=== PATIENT | male | born 1960 | race Caucasian/White ===

== ENCOUNTER → 2018-10-04 | Outpatient (CLI) | payer OTHER ==
[~2018-10-04] MED LIST: CETI10TA22 PO; GABA300C18 PO; MELO7.5T29 PO; TRIA15CR TP; ZOLP10TA PO
[2018-10-04 12:48] LABS: CALCIUM 9.4 mg/dL (8.5-10.1); GFR 77.3; POTASSIUM 4.2 mmol/L (3.5-5.1)
[2018-10-04 12:57] LABS: BASO % 1 % (0-3); EOS # 0.2 x10^3/uL (0.0-0.7); EOS % 4 % (0-3); HEMATOCRIT 48.9 % (39.0-53.0); HEMOGLOBIN 17.3 g/dL (13.0-17.5); LYMPH # 1.9 x10^3/uL (1.0-4.8); LYMPH % 31 % (24-48); MEAN CORPUSCULAR HEMOGLOBIN 34 pg (25-35); MEAN CORPUSCULAR HGB CONC 35 g/dL (31-37); MEAN CORPUSCULAR VOLUME 95 fL (79-100); MONO # 0.3 x10^3/uL (0.0-1.1); MONO % 5 % (0-9); NEUT # 3.6 x10^3/uL (1.8-7.7); NEUT % 60 % (31-73); PLATELET COUNT 229 x10^3/uL (140-400); RED BLOOD COUNT 5.13 x10^6/uL (4.30-5.70); RED CELL DISTRIBUTION WIDTH 13.6 % (11.5-14.5); WHITE BLOOD COUNT 6.1 x10^3/uL (4.0-11.0)
== END | disposition home or self-care (01) ==
LOC: SURGPAT 11:56
PROVIDERS: ATTEND Surgery
DX: Z01.818 Encounter for other preprocedural examination (principal); K62.89 Other specified diseases of anus and rectum
CPT/HCPCS: 36415; 80048; 82040; 85025

== ENCOUNTER 2018-10-11 09:36 | Day surgery (SDC) | payer OTHER ==
[~2018-10-11] VITALS: Ht 188 cm; Wt 77.0 kg
[~2018-10-11 09:36] MED LIST changes: +HYDROmorphone 2 MG/ML VIAL IV PRN; +IV RINGERS,LACTATED 1000ML 1,000 ML IV SCH; +LIDOCAINE 1% PF 2 ML VIAL. ID PRN; +MORPHINE SULFATE 2 MG/ML VIAL. IV PRN; +ONDANSETRON PF 4 MG/2 ML VIAL. IV PRN; +PROCHLORPERAZINE 10 MG/2 ML VIAL. IV PRN; +fentaNYL PF VIAL 100 MCG/2 ML VIAL IV PRN
[2018-10-11] MEDS ORDERED: fentaNYL PF VIAL 100 MCG/2 ML VIAL ONE (11:28)
[2018-10-11] MEDS ORDERED: ROCURONIUM 50 MG/5 ML VIAL. ONE (11:28)
[2018-10-11] MEDS ORDERED: MIDAZOLAM HCL/PF 2 MG/2 ML VIAL. ONE (11:55)
[2018-10-11] MEDS ORDERED: GELATIN SPONGE SIZE 100. ONE (11:59)
[2018-10-11] MEDS ORDERED: LIDOCAINE 2% JELLY 6ML IN APPLICATOR. ONE (11:59)
[2018-10-11] MEDS ORDERED: BUPIVACAINE-EPI 0.5%-1:200000 MPF 30 ML VIAL. INJ ONE (12:26)
[2018-10-11] MEDS ORDERED: GELATIN SPONGE SIZE 12-7MM SPONGE. TP ONE (12:26)
[2018-10-11] MEDS ORDERED: PROPOFOL 20 ML IV ONE (12:40)
[2018-10-11] MEDS ORDERED: LIDOCAINE 2% PF 5 ML VIAL. ONE (12:40)
[2018-10-11] MEDS ORDERED: DEXAMETHASONE SOD PHOS 4 MG/ML VIAL ONE (12:40)
[2018-10-11] MEDS ORDERED: ONDANSETRON PF 4 MG/2 ML VIAL. ONE (12:40)
[2018-10-11] MEDS ORDERED: GLYCOPYRROLATE 1 MG/5 ML VIAL. ONE (12:41)
[2018-10-11] MEDS ORDERED: NEOSTIGMINE METHYLSULFATE 5 MG/5 ML SYRINGE. ONE (12:41)
--- NOTE | 2018-10-11 12:54 | DISCH ---
DISCHARGE INSTRUCTIONS Condition on Discharge Condition on Discharge: Stable Activity After Discharge Activity Instructions for Disc: Activity as tolerated, Avoid exertion Lifting Instructions after Dis: No heavy lifting Driving Instructions after Dis: Do not drive today Diet after Discharge Diet after Discharge: Regular Wound Incision Care Other wound/incision instructi: torres Bonilla Follow-Up Follow up with: Josef two weeks ILYA CALLOWAY MD Oct 11, 2018 12:54
[2018-10-11] MEDS ORDERED: SEVOFLURANE 31 TO 60 MINUTES. IH ONE (12:57)
--- NOTE | 2018-10-11 13:00 | PDOC ---
BRIEF OPERATIVE NOTE Date: Oct 11, 2018 Pre-Op Diagnosis perianal skin tags, possible fissure Post-Op Diagnosis perianal skin tags Procedure Performed EUA rigid procto excision perianal skin tags Surgeon Josef Anesthesia Type: General Blood Loss 10cc IV Fluid 1000cc Specimens Obtained perianal skin tags Findings no evidence of internal hemorrhoids or anal fissure, skin tags at 11:00 and 6:00 Complications none Operative Note Wk # [id number] ILYA CALLOWAY MD Oct 11, 2018 12:59
--- NOTE | 2018-10-11 13:11 | OP ---
DATE OF SURGERY: 10/11/2018 PREOPERATIVE DIAGNOSIS: Perianal skin tags, possible fissure. POSTOPERATIVE DIAGNOSIS: Perianal skin tags. PROCEDURES: 1. Exam under anesthesia. 2. Rigid proctoscopy. 3. Excision perianal skin tag. SURGEON: Ilya Calloway MD ANESTHESIA: General endotracheal. ESTIMATED BLOOD LOSS: 10 mL. INTRAVENOUS FLUIDS: A liter. DESCRIPTION OF PROCEDURE: The patient brought to the operating suite, given a general endotracheal anesthetic and placed in prone jackknife position and the buttocks were taped apart. Digital rectal exam was performed after a careful inspection of the perianal skin, which did not show evidence of a fissure. Rigid scope was inserted in the anal canal and advanced approximately 12 cm from the anal verge where some tortuosity prevented further advancement. The scope was slowly removed, no abnormalities seen, prep was good. Marcaine 0.5% with epinephrine was infiltrated circumanally and the area prepped and draped in usual sterile fashion. Careful inspection of the anal canal failed to reveal evidence of internal hemorrhoids. A large and smaller perianal skin tag at 11 o'clock and 6 o'clock respectively were excised. Good hemostasis was present. A Gelfoam pack with 2% lidocaine jelly was placed in the anal canal. Sterile dressing applied. The patient taken out of the prone position, awakened from his anesthetic and taken to the recovery room in satisfactory condition. ILYA CALLOWAY MD DR: WESLY/edwin JOB#: [id number] / [id number]
[2018-10-11] MEDS: fentaNYL PF VIAL 100 MCG/2 ML VIAL IV PRN ×3 (13:25→13:45)
[2018-10-11] MEDS ORDERED: HYDROcodone/APAP 5/325MG 1 TAB TABLET PO ONE (13:30)
[2018-10-11 14:10] VITALS: BP 115/71
--- NOTE | 2018-10-13 18:06 | PATHOLOGY ---
[facility] Accession Number: [id number] . 01 Material submitted: . perianal area - PERIANAL SKIN TAGS . 01 Clinical history: . Anal pain . 02 Diagnosis: Segments of skin (2), perianal excision: - Cutaneous tags. (JPM:gabbie; 10/13/2018) QMS/10/13/2018 . 02 Comment: There is no evidence of malignancy. . 02 Electronically signed: . Tomer Alvarez MD, Pathologist NPI- [id number] . 01 Gross description: . The specimen is received in formalin, labeled "Jon Ramirez, perianal skin tags". Received are two segments of edwards-rowan epithelial covered tissue measuring 1.2 x 0.4 x 0.3 and 1.5 x 1.0 x 1.0 cm in greatest dimensions. The apparent surgical margins are inked. The smaller segment is submitted intact in cassette A1. The larger segment is bisected and entirely submitted in cassette A2. (CAA; 10/12/2018) QAC/QAC . 02 Pathologist provided ICD-10: L91.8 . 02 CPT . 611305 Specimen Comment: A courtesy copy of this report has been sent to Specimen Comment: [phone], . Specimen Comment: Report sent to and Performed at: 01 [facility] [address], [place] [id number] MD Jerald Boyle MD Phone: [phone] Performed at: 02 [facility] [address] [place], [place] [id number] MD Tomer Alvarez MD Phone: [phone]
== END 2018-10-11 14:33 | disposition home or self-care (01) ==
LOC: SURG 09:36 → EDUNIT# 11:15 → SURG 14:33
PROVIDERS: ATTEND Surgery
DX: L91.8 Other hypertrophic disorders of the skin (principal); F41.9 Anxiety disorder, unspecified; F32.9 Major depressive disorder, single episode, unspecified; Z87.01 Personal history of pneumonia (recurrent); Z98.890 Other specified postprocedural states
CPT/HCPCS: 46230; A7015; J0690; J1100; J2001; J2250; J2405; J2704; J2710; J3010; J3490; J7120; A4461

== ENCOUNTER → 2018-10-24 | Outpatient (CLI) | payer OTHER ==
[2018-10-11 14:10] VITALS: BP 115/71
[~2018-10-24] MED LIST changes: +DULO60CA6 PO; +GABA600T7 PO; -HYDROmorphone 2 MG/ML VIAL IV PRN; -IV RINGERS,LACTATED 1000ML 1,000 ML IV SCH; -LIDOCAINE 1% PF 2 ML VIAL. ID PRN; -MORPHINE SULFATE 2 MG/ML VIAL. IV PRN; -ONDANSETRON PF 4 MG/2 ML VIAL. IV PRN; -PROCHLORPERAZINE 10 MG/2 ML VIAL. IV PRN; +SUMA100T4 PO; +ZOLP10TA4 PO; -fentaNYL PF VIAL 100 MCG/2 ML VIAL IV PRN
--- NOTE | 2018-10-25 00:18 | PAIN ---
DATE OF SERVICE: 10/24/2018 INITIAL CONSULTATION FOR PAIN CLINIC CHIEF COMPLAINT: Low back and right lower extremity pain. HISTORY OF PRESENT ILLNESS: This is a 58-year-old male, who presents with history of pain in the low back and right lower extremity for about 4 years. The patient reports he was bending over, working on his truck and his back "went out." The patient reports that since that time, it has been painful. He has been doing some physical therapy exercises, which he had initially, but now doing the exercises on his own since 2014. The patient reports he has had no chiropractic treatment or other treatments, but is doing the exercises, still on his own. The patient reports that the pain is constant, it is in the low back, radiating to the right lower extremity, posterior gluteus, posterolateral thigh, lateral anterior thigh, medial thigh, medial lower leg to the middle leg to the ankle. The patient reports it is a constant pain, that is tingling at times, worse with walking, standing, changing positions, better with sitting or lying down, it does not awaken her from sleep at night, it does not affect her bowel or bladder control, but does affect his ability to walk; however, he is not using any assistive devices to ambulate. The patient did have plain films of the lumbar spine showing lumbar vertebral height is maintained, mil scattered marginal spurs, mild disk space narrowing at L5-S1 with mild degenerative changes in the lungs, scattered facet joints. No fracture or subluxation evident with multilevel degenerative change. The patient reports no loss of motor function, but significant fatigability of the right lower extremity with ambulation with especially standing or standing still. The patient reports a disability rating from 0-10, 10 being the worst and 0 with family home responsibilities, 1 with recreation activities, 1 with sexual behavior and 3 with self-care activities. PAST MEDICAL HISTORY: Significant for arthritis, cigarette smoking. PREVIOUS SURGERY: Includes appendectomy, otherwise the patient has been in fairly good health. MEDICATIONS: Current medications include zolpidem, sumatriptan. Cetirizine, gabapentin, tizanidine. ALLERGIES: THE PATIENT IS ALLERGIC TO ONLY SEASONAL ALLERGIES AND ENVIRONMENTAL ALLERGIES. No medical allergies. FAMILY HISTORY: Significant for heart disease, diabetes and cancers. SOCIAL HISTORY: The patient smokes about a pack a day since he was 18 years of age. Does not drink alcohol, does not use any illegal, illicit or recreational drugs. He is single. Lives locally in [place], [place]. REVIEW OF SYSTEMS: The patient's review of systems is positive for those items mentioned in history of present illness. All systems reviewed and otherwise negative. It is complete, full and well documented on the patient's chart. PHYSICAL EXAMINATION: VITAL SIGNS: The patient's blood pressure is 126/81, pulse 61, respirations 18, temperature 98.0 degrees Fahrenheit, height is 6 feet 2 inches, weight is 166 pounds. GENERAL: The patient is awake, alert, oriented, appropriate, very pleasant demeanor. HEENT: Head shows normocephalic, atraumatic. Extraocular movements are intact and symmetrical. Oral cavity: Mucous membranes are moist and pink. Dentition is intact. NECK: Shows anterior throat supple without palpable lymphadenopathy noted. Swallow reflexes are symmetrical. CHEST: Shows normal on inspection. Breath sounds are clear to auscultation bilaterally. HEART: Shows S1, S2 clear. No murmurs auscultated. ABDOMEN: Soft, nontender, nondistended. No palpable organomegaly is noted. No rebound or guarding demonstrated. BACK: Shows spine grossly in the midline, normal-appearing cervical lordotic curvature, thoracic kyphotic curvature and lumbar lordotic curvature. Lumbar paraspinous muscle shows symmetrical on inspection, with palpation shows some moderate tenderness diffusely throughout the upper, middle and lower distribution of the paraspinous muscles bilaterally. The patient shows good rotational motion with no tenderness over the spinous processes, sacrum or sacroiliac regions. The patient shows good rotation as well as extension and flexion without significant increase in pain. EXTREMITIES: Lower extremities show deep tendon reflexes 1+ in the patellar and tendo-calcaneus tendons. Motor exam is strong with approximately 4 on a scale of 5 right dorsiflexion, extension and 5/5 on the left. Quadriceps and hamstring flexion likewise 4/5 on the right and 5/5 on the left, but intact. Peripheral pulses are 1+ posterior tibia. No peripheral edema is noted. Straight leg raise noted to be positive on the right side about 35 degrees, decreased with knee flexion, left side is negative. Gaenslen's and Bruce's maneuvers are negative bilaterally. The patient is able to stand, stand on her toes without significant difficulty or loss of balance, walking with a slight shuffling gait, does appear to favor the right lower extremity slightly with a small limp, but without any assistive devices such as canes or walkers to ambulate. SKIN: Shows warm and dry, good turgor. No edema. No sores, rashes or bruising throughout. IMPRESSION: 1. This is a 58-year-old male with an approximate 4-year history of increasing pain, low back into the right lower extremity, in a radicular fashion following L4-L5 dermatomal distribution. 2. Plain films of the lumbar spine as noted. 3. Arthritis. 4. Cigarette smoking. PLAN: Options were discussed with the patient including conservative medical management managements, continued physical therapies, interventional techniques. He would like to pursue interventional techniques. We discussed a lumbar epidural steroid injection using descriptions as well as anatomical models to describe the procedure. The patient will wait for preauthorization with his insurance provider. Once this is obtained, we will have him return for a lumbar epidural steroid injection. In the meantime, we will try Medrol Dosepak. The patient was given instruction as well as side effects to be aware of with the medication and we will have him continue with exercises at home as he has been doing as well as walking as tolerated and have the patient to return in approximately 1 week. We will plan on 2 weeks after preauthorization for lumbar epidural steroid injection at that time, translaminar approach at the L4-L5 level. ALVAREZ GRANT MD DR: HERNANDO/edwin JOB#: [id number] / [id number]
== END | disposition home or self-care (01) ==
LOC: PNCL 09:59 → EDUNIT# 10:00
PROVIDERS: ATTEND Anesthesiology
DX: M54.5 Low back pain (principal); M79.604 Pain in right leg; M19.90 Unspecified osteoarthritis, unspecified site; F17.210 Nicotine dependence, cigarettes, uncomplicated
CPT/HCPCS: G0463

== ENCOUNTER → 2018-11-07 | Outpatient (CLI) | payer OTHER ==
[2018-10-11 14:10] VITALS: BP 115/71
[~2018-11-07] MED LIST changes: +IOHEXOL 180 MG/ML 10 ML VIAL. ONE; +methylPREDNISolone ACETATE 40 MG/ML VIAL. ONE; +methylPREDNISolone ACETATE 80 MG/ML VIAL. ONE
--- NOTE | 2018-11-07 19:41 | PAIN ---
DATE OF SERVICE: 11/07/2018 PROGRESS NOTE FOR PAIN CLINIC DIAGNOSES: Lumbar radiculopathy with lumbar degenerative disk disease. HISTORY OF PRESENT ILLNESS: The patient is a 58-year-old male, who returns for followup status post initial evaluation and preauthorization for lumbar epidural steroid injection. The patient has obtained this now and would like to proceed. The patient returns. He has still significant pain in the low back and into the right lower extremity as it was previously. The patient reports no new motor or sensory deficits. No new bowel or bladder incontinence. He rates his pain as 9 on a scale of 10 at its worst over the past week, 4 on average and a 2 at its least and is 4 today. The patient reports it is still aching and dull, shooting and tingling, some on the right leg. The patient reports no new motor or sensory deficits. No new bowel or bladder incontinence or other complaints. PHYSICAL EXAMINATION: VITAL SIGNS: The patient's blood pressure 120/82, pulse 65, respirations 18, temperature 98.1 degrees Fahrenheit. Height is 6 feet 2 inches and weight is 164 pounds. GENERAL: The patient is awake, alert, oriented, and appropriate, very pleasant demeanor. HEENT: Shows normocephalic, atraumatic. Extraocular movements are intact and symmetrical. Oral cavity: Mucous membranes moist and pink. Dentition is intact. NECK: Shows anterior throat supple without palpable lymphadenopathy noted. Swallow reflex symmetrical. CHEST: Shows normal on inspection. Breath sounds clear to auscultation bilaterally. HEART: Shows S1, S2 clear. No murmurs auscultated. ABDOMEN: Soft, nontender, and nondistended. No palpable organomegaly is noted. There is no rebound or guarding demonstrated. BACK: Shows spine grossly in the midline. Normal appearing thoracic kyphosis and minor flattening of lumbar lordotic curvature. Lumbar paraspinous muscle shows symmetrical on inspection and with palpation shows some mild tenderness in the inferior aspect of the lumbar paraspinous musculature, but only diffusely without radiation. The patient has good rotational motion of lumbar spine, both laterally as well as extension and flexion without difficulty. EXTREMITIES: Lower extremities show deep tendon reflexes 1+ in the patellar and tendo calcaneus tendons are equal. Motor exam is approximately 4 on a scale of 5 on the right with dorsiflexion and extension, 5/5 on the left. Peripheral pulses are 1+ in the posterior tibia. No peripheral edema is noted. Options were discussed with the patient. The patient's old chart was reviewed as his current medication regimen updated. Current review of systems updated today as well. We will proceed with a lumbar epidural steroid injection today with fluoroscopic guidance. Risks were again discussed including, but not limited to bleeding, infection, possibility of epidural hematoma and subsequent neurological compromise, dural puncture, headaches, spinal cord and/or nerve damage, side effects of steroid medication, and poor results regarding pain control. The patient understands and wished to proceed. The patient will return to clinic in approximately 2 weeks for followup. He was counseled on return appointment, activity level, and side effects to be aware of. DIAGNOSES: Lumbar radiculopathy with lumbar degenerative disk disease. PROCEDURE: Lumbar epidural steroid injection, translaminar approach L4-5 level using C-arm fluoroscopic guidance under sterile prep and drape using local anesthetic. MEDICATION INJECTED: A total of 120 mg of Depo-Medrol plus 10 mL of preservative-free normal saline and 2 mL of contrast. CONDITION AT DISCHARGE: Stable. The patient tolerated the procedure well and had no complications. ALVAREZ GRANT MD DR: HERNANDO/edwin JOB#: [id number] / [id number]
== END ==
LOC: PNCL 11:21
PROVIDERS: ATTEND Anesthesiology
DX: M51.16 Intervertebral disc disorders with radiculopathy, lumbar region (principal)
CPT/HCPCS: 62323; J1030; J1040; Q9965

== ENCOUNTER → 2019-01-10 | Outpatient (CLI) | payer OTHER ==
[~2019-01-10] MED LIST changes: -IOHEXOL 180 MG/ML 10 ML VIAL. ONE; -methylPREDNISolone ACETATE 40 MG/ML VIAL. ONE; -methylPREDNISolone ACETATE 80 MG/ML VIAL. ONE
--- NOTE | 2019-01-10 12:33 | PAIN ---
DATE OF SERVICE: 01/10/2019 PROGRESS NOTE FOR PAIN CLINIC DIAGNOSES: Lumbar radiculopathy with lumbar degenerative disk disease. HISTORY OF PRESENT ILLNESS: The patient is a 58-year-old male who returns for followup status post lumbar epidural steroid injection x 1 on 11/07/2018. The patient did very well with an 80% improvement for the first few weeks. The patient reports the pain returned after that time in the low back and in the right lower extremity, posterior gluteus, lateral thigh, anterior thigh, medial thigh, medial lower leg and medial knee on the right side more than the left. The patient reports some on the left side, but very infrequent. The patient reports it is worse with walking, standing, changing positions, better with sitting or lying down, awakens him from sleep about every 7 hours or so and it only happened recently within the last month or so, the pain has been returning significantly. The patient rates it 9 on a scale of 10 at its worst in the past week, 7.5 on average and 6 at its least and is a 7 today. The patient reports it is aching, dull, shooting, cramping, burning, tingling, constant, severe, becoming unbearable with walking and changing positions, better with sitting or lying down, but again waking him up from sleep fairly often here within the last month or so. PHYSICAL EXAMINATION: VITAL SIGNS: The patient's blood pressure is 125/91, pulse 98, respirations are 16, temperature 97.9 degrees Fahrenheit, height 6 feet 2 inches and weight is 164 pounds. GENERAL: The patient is awake, alert, oriented, appropriate, very pleasant demeanor. HEENT: Shows normocephalic, atraumatic. Extraocular movements are intact and symmetrical. Oral cavity: Mucous membranes moist and pink. Dentition is intact. NECK: Shows anterior throat supple without palpable lymphadenopathy noted. Swallow reflex symmetrical. CHEST: Shows normal on inspection. Breath sounds are clear bilaterally. HEART: Shows S1, S2 clear. No murmurs auscultated. ABDOMEN: Soft, nontender, nondistended. No palpable organomegaly is noted. No rebound or guarding demonstrated. BACK: Shows spine grossly in the midline. Normal appearing thoracic kyphosis and minor flattening of lumbar lordotic curvature. Lumbar paraspinous muscle shows symmetrical on inspection, on palpation shows some moderate tenderness diffusely bilaterally but only diffusely without radiation. The patient has good rotational motion of lumbar spine without significant tenderness including extension and forward flexion without pain reported in any of these rotations. EXTREMITIES: Lower extremities show deep tendon reflexes 1+ in the patellar and tendo calcaneus tendons. Motor exam is approximately 4 on a scale of 5 on the right and 5/5 with left dorsiflexion, extension, quadriceps and hamstring flexion, but is intact bilaterally. Peripheral pulses are 1+ posterior tibia. No peripheral edema is noted. Straight leg raise noted to be mildly positive on the right at about 40 degrees, decreased with knee flexion, left side is negative. Peripheral pulses are 1+, no peripheral edema is noted. Options were discussed with the patient. The patient's old chart was reviewed as his current medication regimen updated. Current review of systems updated today as well. We will preauthorize the patient for a second lumbar epidural steroid injection as he still has significant radicular pattern pain in the right lower extremity in L4-L5 dermatomal distribution. The patient will continue with walking, stretching and strengthening exercises as he has been doing as tolerated. We will have preauthorization for the injection, the patient return at that time, also order MRI scan as he is not able to perform, he does have some significant degenerative findings on plain films from July of this year especially at the L5-S1 level. After preauthorization lumbar epidural steroid injection at L4-L5 level, translaminar approach. ALVAREZ GRANT MD DR: HERNANDO/edwin JOB#: [id number] / [id number]
== END | disposition home or self-care (01) ==
LOC: PNCL 09:16
PROVIDERS: ATTEND Anesthesiology
DX: M51.16 Intervertebral disc disorders with radiculopathy, lumbar region (principal)
CPT/HCPCS: G0463

== ENCOUNTER → 2019-01-15 | Outpatient (CLI) | payer OTHER ==
--- NOTE | 2019-01-15 10:28 | RAD ---
LUMBAR SPINE WO CONTRAST Date: 01/15/2019 9:00 AM Indication: Radiculopathy Comparison: CT abdomen pelvis 10/29/2018. Lumbar spine radiographs 08/04/2018. Technique: Multi-planar multi-weighted magnetic resonance imaging of the lumbar spine was performed without intravenous contrast using the standard lumbar spine protocol. FINDINGS: The lumbar spine is normally aligned. No acute fracture. Mild multilevel degenerative disc desiccation and disc height loss. Scattered vertebral body hemangiomas. The conus terminates at a normal level. No abnormal signal is seen within the visualized distal spinal cord. No clumping of intrathecal nerve roots. No soft tissue abnormality in the visualized abdomen or pelvis. T12-L1: No disc bulge. No facet arthropathy. No significant spinal stenosis or neural foraminal narrowing. L1-L2: Mild disc bulge. No facet arthropathy. No significant spinal stenosis or neural foraminal narrowing. L2-L3: Mild disc bulge. Mild facet arthropathy. No significant spinal stenosis or neural foraminal narrowing. L3-L4: Disc bulge with annular tear. Mild to moderate facet arthropathy. Mild spinal stenosis and lateral recess narrowing. Mild bilateral neural foraminal narrowing. L4-L5: Disc bulge with annular tear. Mild facet arthropathy. Ligamentum flavum thickening. Mild spinal stenosis and lateral recess narrowing. Mild to moderate left and mild right neural foraminal narrowing. L5-S1: Disc bulge with annular tear and right greater than left far lateral protrusions. Mild facet arthropathy. No significant spinal stenosis. Mild bilateral neural foraminal narrowing. IMPRESSION: Mild to moderate lumbar spondylosis, detailed level by level above. No high-grade spinal canal stenosis. Electronically signed by: Dominick Reyes MD (01/15/2019 10:25 AM) [facility]
== END ==
LOC: MRI 08:47
PROVIDERS: ATTEND Anesthesiology
DX: M51.16 Intervertebral disc disorders with radiculopathy, lumbar region (principal); M48.061 Spinal stenosis, lumbar region without neurogenic claudication; M47.816 Spondylosis without myelopathy or radiculopathy, lumbar region
CPT/HCPCS: 72148

== ENCOUNTER → 2019-01-18 | Outpatient (CLI) | payer OTHER ==
[~2019-01-18] MED LIST changes: +IOHEXOL 180 MG/ML 10 ML VIAL. ONE; +methylPREDNISolone ACETATE 40 MG/ML VIAL. ONE; +methylPREDNISolone ACETATE 80 MG/ML VIAL. ONE
--- NOTE | 2019-01-18 22:35 | PAIN ---
DATE OF SERVICE: 01/18/2019 PROGRESS NOTE FOR PAIN CLINIC DIAGNOSES: Lumbar radiculopathy with lumbar degenerative disk disease. HISTORY OF PRESENT ILLNESS: The patient is a 58-year-old male who returns for followup, status post lumbar epidural steroid injection x 1 on 11/07/2018. The patient did well, about 70% improvement for the first month or so. The patient reports the pain has returned now in the low back, right greater than left lower extremity, posterior gluteus, posterolateral thigh, lateral anterior thigh and medial thigh on the right side. The patient reports it is worse with walking, standing, changing positions, better with sitting or lying down, does not awaken him from sleep at night. The patient rated this as an 8 on a scale of 10 at its worst over the past week, 7 on average, 6 at its least and is a 6 today. The patient reports no new motor or sensory deficits. Initially, he was increased with distance walking, doing household activities as well as traveling with greater ease and comfort, now the pain is returning in the low back and right leg. Describes as aching, burning, sharp and shooting at times. PHYSICAL EXAMINATION: VITAL SIGNS: The patient's blood pressure 115/72, pulse 66, respirations 18, temperature 97.8 degrees Fahrenheit, height 6 feet 2 inches, weight is 166 pounds. GENERAL: The patient is awake, alert, oriented, appropriate, very pleasant demeanor. HEENT: Shows normocephalic, atraumatic. Extraocular movements are intact and symmetrical. Oral cavity: Mucous membranes moist and pink. Dentition is intact. NECK: Shows anterior throat supple without palpable lymphadenopathy noted. Swallow reflex symmetrical. CHEST: Shows normal on inspection. Breath sounds clear to auscultation bilaterally. HEART: Shows S1, S2 clear. No murmurs auscultated. ABDOMEN: Soft, nontender, nondistended. No palpable organomegaly is noted. BACK: Shows spine grossly in the midline. Normal appearing thoracic kyphosis, minor flattening of lumbar lordotic curvature. Lumbar paraspinous muscle shows symmetrical on inspection, on palpation shows some moderate tenderness diffusely bilaterally going diffusely without significant radiation. The patient has good rotational motion of lumbar spine, both laterally as well as extension and flexion without significant difficulty or pain reported. EXTREMITIES: The patient's lower extremities show deep tendon reflexes 1+ in the patellar and tendo calcaneus tendons. Motor exam is 4 on a scale of 5 on the right and 5/5 on the left with dorsiflexion and extension. Peripheral pulses are 1+ posterior tibia. No peripheral edema is noted bilaterally. Options were discussed with the patient. The patient's old chart was reviewed as his current medication regimen updated. Current review of systems updated today as well. We will proceed with a second in the series of lumbar epidural steroid injection today with fluoroscopic guidance. Risks were again discussed including, but not limited to bleeding, infection, possibility of epidural hematoma, subsequent neurological compromise, dural puncture, headaches, spinal cord and/or nerve damage, side effects of steroid medication and poor results regarding pain control. The patient understands and wished to proceed. The patient will return to clinic in approximately 2 weeks for followup. He was counseled on return appointment, activity level and side effects to be aware of. DIAGNOSES: Lumbar radiculopathy with lumbar degenerative disk disease. PROCEDURE: Lumbar epidural steroid injection, translaminar approach at L4-L5 level using C-arm fluoroscopic guidance under sterile prep and drape using local anesthetic. MEDICATION INJECTED: A total of 120 mg Depo-Medrol plus 10 mL of preservative-free normal saline and 2 mL of contrast. CONDITION AT DISCHARGE: Stable. The patient tolerated procedure well, had no complications. ALVAREZ GRANT MD DR: HERNANDO/edwin JOB#: [id number] / [id number]
== END ==
LOC: PNCL 11:35
PROVIDERS: ATTEND Anesthesiology
DX: M51.16 Intervertebral disc disorders with radiculopathy, lumbar region (principal)
CPT/HCPCS: 62323; J1030; J1040; Q9965

== ENCOUNTER → 2019-02-01 | Outpatient (CLI) | payer OTHER ==
[~2019-02-01] MED LIST changes: -IOHEXOL 180 MG/ML 10 ML VIAL. ONE; -methylPREDNISolone ACETATE 40 MG/ML VIAL. ONE; -methylPREDNISolone ACETATE 80 MG/ML VIAL. ONE
--- NOTE | 2019-02-01 13:56 | PAIN ---
DATE OF SERVICE: 02/01/2019 PROGRESS NOTE FOR PAIN CLINIC DIAGNOSES: Lumbar radiculopathy with lumbar degenerative disk disease. HISTORY OF PRESENT ILLNESS: The patient is a 58-year-old male who returns for followup status post lumbar epidural steroid injection x 2. The patient reports about 80% improvement after the last injection for at least 2 weeks since the shot. The patient reports he is doing much better, increased his activity, greater distance walking, doing household activities, traveling with greater ease and comfort, sleeping better at night, does not affect his sleep. He is feeling much better with daily activities. The patient reports the pain is a 6 on a scale of 10 at its least and is a 7 on average, 7 at its worst over the past week and is sharp and tight, shooting in the low back and especially on the right lower extremity, but doing much better than it was, some cramping in the back as well. The patient reports no new motor or sensory deficits, no new bowel or bladder incontinence, very pleased with his progress thus far, reports the pain is beginning to return in the low back and right leg, mostly in the posterior gluteus, posterolateral thigh, lateral anterior thigh, medial thigh and posterior calf. PHYSICAL EXAMINATION: VITAL SIGNS: The patient's blood pressure 131/80, pulse 78, respirations 18, temperature 98.0 degrees Fahrenheit, height 6 feet 2 inches, weight is 162 pounds. GENERAL: The patient is awake, alert, oriented, appropriate, very pleasant demeanor. HEENT: Shows normocephalic, atraumatic. Extraocular movements are intact and symmetrical. Oral cavity: Mucous membranes moist and pink. Dentition is intact. NECK: Shows anterior throat supple without palpable lymphadenopathy noted. Swallow reflex symmetrical. CHEST: Shows normal on inspection. Breath sounds are clear bilaterally. HEART: Shows S1, S2 clear. No murmurs auscultated. ABDOMEN: Soft, nontender, nondistended. No palpable organomegaly is noted. No rebound or guarding demonstrated. BACK: Shows spine grossly in the midline. Normal-appearing thoracic kyphosis and lumbar lordotic curvature. Lumbar paraspinous muscle shows symmetrical on inspection, on palpation shows some moderate tenderness diffusely bilaterally and diffusely without significant radiation. The patient has good rotational motion of lumbar spine. EXTREMITIES: Lower extremities show deep tendon reflexes 1+ in the patellar and tendo calcaneus tendons. Motor exam is approximately 4 on a scale of 5 on the right and 5/5 on the left, but intact. Peripheral pulses are 1+ posterior tibia. No peripheral edema is noted bilaterally. Options were discussed with the patient. The patient's old chart was reviewed as his current medication regimen updated. Current review of systems updated today as well. We will proceed with preauthorization for a third lumbar epidural steroid injection. The patient did very well after the last injections with about 80% improvement, still pain in the low back especially in the right lower extremity in a radicular fashion following L4-L5 dermatomal distribution, L4-L5 radiculopathy on the right. We will have the patient return for a lumbar epidural steroid injection, translaminar approach at the L4-L5 level. In the meantime, the patient will continue with stretching and strengthening exercises, walking daily and exercising at best of his ability and will follow up as scheduled. ALVAREZ GRANT MD DR: HERNANDO/edwin JOB#: [id number] / [id number]
== END | disposition home or self-care (01) ==
LOC: PNCL 10:31
PROVIDERS: ATTEND Anesthesiology
DX: M51.16 Intervertebral disc disorders with radiculopathy, lumbar region (principal)
CPT/HCPCS: G0463

== ENCOUNTER → 2019-03-22 | Outpatient (CLI) | payer MEDICARE, OTHER ==
[~2019-03-22] MED LIST changes: -CETI10TA22 PO; +CETI10TA24 PO; +IOHEXOL 180 MG/ML 10 ML VIAL. ONE; +methylPREDNISolone ACETATE 40 MG/ML VIAL. ONE; +methylPREDNISolone ACETATE 80 MG/ML VIAL. ONE
--- NOTE | 2019-03-22 11:25 | PAIN ---
DATE OF SERVICE: 03/22/2019 PROGRESS NOTE FOR PAIN CLINIC DIAGNOSES: Lumbar radiculopathy with lumbar degenerative disk disease. HISTORY OF PRESENT ILLNESS: The patient is a 59-year-old male, who returns for followup status post lumbar epidural steroid injection x 2, most recently seen on 01/18/2019. The patient did well, about 70% improvement initially, but now down to about 10% improvement overall. The patient reports still significant pain in the low back, right lower extremity as it was previously. No new motor or sensory deficits or other changes. No bowel or bladder incontinence, but still significant pain with walking, standing, changing positions, better with sitting or lying down, but it occasionally awakens him from sleep, but not more than once every 7 hours or so. The patient reports his pain is an 8 on a scale of 10 at its worst and average and a 7 at its least. The patient reports it is aching and dull, shooting, mostly in the right leg and posterior lateral aspect of the thigh and the anterior thigh as well as the medial lower leg. The patient reports no new motor or sensory deficits. No new bowel or bladder incontinence or other complaints. PHYSICAL EXAMINATION: VITAL SIGNS: The patient's blood pressure 119/73, pulse 79, respirations are 16, temperature is 98.1 degrees Fahrenheit, height is 6 foot, weight is 156 pounds. GENERAL: The patient is awake, alert, oriented, appropriate, very pleasant demeanor. HEENT: Head shows normocephalic, atraumatic. Extraocular movements are intact and symmetrical. Oral cavity: Mucous membranes moist and pink. Dentition is intact. NECK: Shows anterior throat supple without palpable lymphadenopathy noted. Swallow reflex symmetrical. CHEST: Shows normal inspection. Breath sounds are clear bilaterally. HEART: Shows S1, S2 clear. No murmurs auscultated. ABDOMEN: Soft, nontender, nondistended. BACK: Shows spine grossly in the midline. Slight exaggeration of thoracic kyphosis and minor flattening of lumbar lordotic curvature. Lumbar paraspinous muscle shows symmetrical on inspection, on palpation shows some moderate tenderness diffusely bilaterally going diffusely without radiation. The patient has good rotational motion of lumbar spine, both laterally as well as extension and flexion without difficulty. EXTREMITIES: Lower extremities show deep tendon reflexes 1+ in the patellar and tendo-calcaneus tendons. Motor exam is approximately 4 on a scale of 5 on the right and 5/5 on the left. Peripheral pulses are 1+ posterior tibia. No peripheral edema is noted bilaterally. Options were discussed with the patient. The patient's old chart was reviewed as his current medication regimen updated. Current review of systems updated today as well. We will proceed with a third in the series of lumbar epidural steroid injection today with fluoroscopic guidance. Risks were again discussed, including but not limited to bleeding, infection, possibility of epidural hematoma, subsequent neurological compromise, dural puncture, headaches, spinal cord and/or nerve damage, side effects of steroid medication and poor results regarding pain control. The patient understands and wished to proceed. The patient will return to the clinic in approximately 2 weeks for followup. She was counseled on return appointment, activity level and side effects to be aware of. DIAGNOSES: Lumbar radiculopathy with lumbar degenerative disk disease. PROCEDURE: Lumbar epidural steroid injection, translaminar approach L4-5 level using C-arm fluoroscopic guidance under sterile prep and drape using local anesthetic. MEDICATION INJECTED: A total of 120 mg Depo-Medrol plus 10 mL of preservative-free normal saline with 2 mL of Isovue for contrast. CONDITION AT DISCHARGE: Stable. The patient tolerated procedure well, had no complications. ALVAREZ GRANT MD DR: HERNANDO/edwin JOB#: [id number] / [id number]
== END | disposition home or self-care (01) ==
LOC: PNCL 09:59
PROVIDERS: ATTEND Anesthesiology
DX: M51.16 Intervertebral disc disorders with radiculopathy, lumbar region (principal); Z98.890 Other specified postprocedural states
CPT/HCPCS: 62323; J1030; J1040; Q9965

== ENCOUNTER → 2019-12-04 | Outpatient (CLI) | payer OTHER ==
[~2019-12-04] MED LIST changes: -CETI10TA24 PO; +CETI10TA74 PO; -IOHEXOL 180 MG/ML 10 ML VIAL. ONE; -methylPREDNISolone ACETATE 40 MG/ML VIAL. ONE; -methylPREDNISolone ACETATE 80 MG/ML VIAL. ONE
--- NOTE | 2019-12-04 09:43 | RAD ---
MRI Lumbar Spine without contrast History: Low back pain, bilateral leg radiculopathy Technique: Multiplanar, multi sequential noncontrast MR imaging was performed of the lumbar spine. Comparison: January 15, 2019 Findings: Lumbar vertebral body stature is maintained. Negligible posterior subluxation L5 relative to S1 is similar. There is moderate to severe L5-S1 degenerative disc disease, minimally of more superior levels other than sparing of L2-3. Conus terminates near L1-2. There are posterior annular tears L3-4 and L4-5. There is no significant focal marrow edema. There are again Tarlov cysts at S2-3 on the left about 1.9 cm cc, on the right about 1.4 cm cc. There are small hemangiomas of L1 and L3. L1-L2: There is mild buckling of the ligamentum flavum and facet degenerative change. Neural foramina and spinal canal are adequate. L2-L3: This level was not included on the axial images. Neural foramina and spinal canal are adequate. There is again shallow right extraforaminal protrusion near the extraforaminal right L2 nerve root without significant displacement. There is right posterolateral annular tear. L3-L4: There is again minimal disc osteophyte complex, superimposed bulge somewhat greater. There is again mild prominence of posterior epidural fat and mild buckling of the ligamentum flavum. There is again moderate facet hypertrophic change. There is mild narrowing of the far lateral recesses bilaterally greater on the right, very slightly greater. Mild attenuation of the thecal sac centrally is slightly greater. Neural foramina are overall adequate. There is now shallow left extraforaminal protrusion/bulge near the undersurface of the extraforaminal left L3 nerve root without displacement. L4-L5: There is negligible disc osteophyte complex and bulge. There is again moderate facet degenerative change and mild buckling of the ligamentum flavum. There is again [id number] narrowing of the far left lateral recess from posteriorly, mild narrowing of the far right lateral recess. Central canal is not significantly narrowed. There is minimal narrowing of the neural foramina bilaterally. L5-S1: There is minimal disc osteophyte complex. There is no significant impingement of the descending S1 nerve roots. Spinal canal is adequate. There is minimal facet degenerative change. There is again mild narrowing of the inferior right neural foramen greater distally with contact of the undersurface exiting right L5 nerve root by disc osteophyte complex. Left neural foramen is overall adequate. There is again disc osteophyte complex near the extraforaminal right L5 nerve root. Impression: 1. Comparing with the January 2019 exam, posterior bulge at L3-4 is somewhat greater. There is again mild to moderate narrowing of the far left lateral recess at L4-5, minimal narrowing of the far lateral recesses on the right at L4-5 and right greater than left at L3-4. 2. There is mild lumbar neural foramina compromise as described. Bulge/protrusion is near the extraforaminal left L3 nerve root at L3-4, also protrusion near the extraforaminal right L2 nerve root at L2-3. There is again disc osteophyte complex near the extraforaminal right L5 nerve root at L5-S1. 3. There is lumbar degenerative disc disease greatest at L5-S1. Electronically signed by: Dominick Casas MD (12/04/2019 9:40 AM) [facility]
== END ==
LOC: MRI 09:00
PROVIDERS: ATTEND Neurological Surgery
DX: M51.37 Other intervertebral disc degeneration, lumbosacral region (principal); M48.061 Spinal stenosis, lumbar region without neurogenic claudication; M25.78 Osteophyte, vertebrae
CPT/HCPCS: 72148

== ENCOUNTER → 2020-01-04 | Outpatient (CLI) | payer OTHER ==
[~2020-01-04] MED LIST changes: +BISA-42 PO; +CETI10TA16 PO; +EREN70AU SQ
[2020-01-04 14:30] LABS: BASO # 0.1 x10^3/uL (0.0-0.2); BASO % 1 % (0-3); EOS # 0.1 x10^3/uL (0.0-0.7); EOS % 2 % (0-3); HEMATOCRIT 44.4 % (39.0-53.0); HEMOGLOBIN 15.4 g/dL (13.0-17.5); LYMPH # 1.8 x10^3/uL (1.0-4.8); LYMPH % 23 % (24-48); MEAN CORPUSCULAR HEMOGLOBIN 33 pg (25-35); MEAN CORPUSCULAR HGB CONC 35 g/dL (31-37); MEAN CORPUSCULAR VOLUME 94 fL (79-100); MONO # 0.3 x10^3/uL (0.0-1.1); MONO % 4 % (0-9); NEUT # 5.5 x10^3/uL (1.8-7.7); NEUT % 71 % (31-73); PLATELET COUNT 199 x10^3/uL (140-400); RED BLOOD COUNT 4.72 x10^6/uL (4.30-5.70); WHITE BLOOD COUNT 7.8 x10^3/uL (4.0-11.0)
--- NOTE | 2020-01-04 14:41 | EKG ---
[facility] [address] [place] [address] Test Date: 2020-01-04 Test Time: 14:39:03 Pat Name: RUSTY STODDARD Department: Room: Gender: M Awake Overnight Counselor: : 1960 Requested By: YOVANY ENCARNACION Order Number: [id number] Reading MD: Gerry Mills MD Measurements Intervals [place] Rate: 64 P: 90 RI: 154 QRS: 73 QRSD: 80 T: 66 QT: 420 QTc: 438 Interpretive Statements SINUS RHYTHM Electronically Signed On 01-07-2020 10:06:00 TOUR DRIVER by Gerry Mills MD
[2020-01-04 14:55] LABS: ALBUMIN 4.2 g/dL (3.4-5.0); ALBUMIN/GLOBULIN RATIO 1.4 (1.0-1.7); CALCIUM 9.7 mg/dL (8.5-10.1); CREATININE 0.7 mg/dL (0.7-1.3); GFR 116.2; TOTAL BILIRUBIN 0.4 mg/dL (0.2-1.0); TOTAL PROTEIN 7.1 g/dL (6.4-8.2)
[2020-01-04 15:05] LABS: PROTHROMBIN TIME PATIENT 12.4 SEC (11.7-14.0)
--- NOTE | 2020-01-04 16:27 | RAD ---
EXAM: PA and Lateral Views of the Chest DATE: 01/04/2020 2:31 PM INDICATION: Reason: PREOP. HX OF SMOKING / Spl. Instructions: / History: PREOP SMOKER COMPARISON: No Prior FINDINGS: The heart is not enlarged. Mediastinal and hilar contours are normal. No focal parenchymal airspace opacity. No pleural effusion or pneumothorax. IMPRESSION: 1. No radiographic evidence for acute cardiopulmonary process. Electronically signed by: Balwinder Gresham MD (01/04/2020 4:24 PM) [id number]
[2020-01-05 01:08] LABS: HEMOGLOBIN A1C 5.5 % (4.8-5.6)
== END ==
LOC: SURGPAT 13:03
PROVIDERS: ATTEND Neurological Surgery
DX: Z01.812 Encounter for preprocedural laboratory examination (principal); M48.061 Spinal stenosis, lumbar region without neurogenic claudication; M54.16 Radiculopathy, lumbar region; Z87.891 Personal history of nicotine dependence; Z20.828 Contact with and (suspected) exposure to other viral communicable diseases
CPT/HCPCS: 71046; 80053; 83036; 85025; 85610; 85730; 93005; U0003

== ENCOUNTER → 2020-01-18 | Outpatient (CLI) | payer OTHER ==
[~2020-01-18] MED LIST changes: +METH-38 PO; +OXYC1TAB15 PO; +SENN1TAB99 PO
== END ==
LOC: LAB 13:15
PROVIDERS: ATTEND Neurological Surgery
DX: Z01.812 Encounter for preprocedural laboratory examination (principal); M54.16 Radiculopathy, lumbar region; Z20.828 Contact with and (suspected) exposure to other viral communicable diseases
CPT/HCPCS: 87641; U0003

== ENCOUNTER 2020-01-22 06:35 | Observation (INO) | payer OTHER ==
[~2020-01-22] VITALS: Ht 182.9 cm; Wt 69.3 kg
[2020-01-22] VITALS (10 sets, daily range): BP systolic 109–152; BP diastolic 71–90
[~2020-01-22 06:35] MED LIST changes: +BACITRACIN 50,000 UNIT in IV NORMAL SALINE 1000ML BAG 1,000 ML IRR ONE; -METH-38 PO; -OXYC1TAB15 PO; -SENN1TAB99 PO
[2020-01-22] MEDS ORDERED: PROPOFOL 10 MG/ML (20ML) VIAL. IV ONE (06:44)
[2020-01-22] MEDS ORDERED: LIDOCAINE 2% PF 5 ML VIAL. ONE (06:44)
[2020-01-22] MEDS ORDERED: ONDANSETRON PF 4 MG/2 ML VIAL. ONE (06:44)
[2020-01-22] MEDS ORDERED: DEXAMETHASONE SOD PHOS 4 MG/ML VIAL ONE (06:44)
[2020-01-22] MEDS ORDERED: ROCURONIUM 50 MG/5 ML VIAL. ONE (06:45)
[2020-01-22] MEDS ORDERED: PROCHLORPERAZINE 10 MG/2 ML VIAL. IV PRN (07:00)
[2020-01-22] MEDS ORDERED: HYDROmorphone 2 MG/ML VIAL IV PRN (07:00)
[2020-01-22] MEDS ORDERED: ONDANSETRON PF 4 MG/2 ML VIAL. IV PRN (07:00)
[2020-01-22] MEDS ORDERED: MORPHINE SULFATE 2 MG/ML VIAL. IV PRN (07:00)
[2020-01-22] MEDS ORDERED: IV RINGERS,LACTATED 1000ML 1,000 ML IV SCH (07:00)
[2020-01-22] MEDS ORDERED: fentaNYL PF VIAL 100 MCG/2 ML VIAL IV PRN (07:00)
[2020-01-22] MEDS ORDERED: LIDOCAINE 1%/EPI 1:100,000 20 ML VIAL. ONE (07:23)
[2020-01-22] MEDS ORDERED: BUPIVACAINE MPF 0.5% 30 ML VIAL. ONE (07:23)
[2020-01-22] MEDS ORDERED: GELATIN SPONGE SIZE 100. ONE (07:23)
[2020-01-22] MEDS ORDERED: THROMBIN TOPICAL 20,000 UNIT SPRAY.SYRN KIT TP ONE (07:23)
[2020-01-22] MEDS ORDERED: REMIFENTANIL 2 MG VIAL. IV ONE (08:15)
[2020-01-22] MEDS ORDERED: MIDAZOLAM HCL/PF 2 MG/2 ML VIAL. ONE (08:15)
[2020-01-22] MEDS ORDERED: fentaNYL PF VIAL 100 MCG/2 ML VIAL ONE ×2 (08:16→11:45)
[2020-01-22] MEDS ORDERED: ePHEDrine PF IN SALINE 50 MG/10 ML SYRINGE. IV ONE (08:44)
[2020-01-22] MEDS ORDERED: DESFLURANE > 120 MINUTES IH ONE (09:08)
[2020-01-22] MEDS ORDERED: PROPOFOL 50 ML IV ONE ×2 (09:58)
[2020-01-22] MEDS ORDERED: NEOSTIGMINE METHYLSULFATE 5 MG/5 ML SYRINGE. ONE (10:51)
[2020-01-22] MEDS ORDERED: CALCIUM CARBONATE 500 MG TAB.CHEW PO PRN (11:15)
[2020-01-22] MEDS ORDERED: IV NORMAL SALINE 1000ML BAG 1,000 ML IV SCH (11:15)
[2020-01-22] MEDS ORDERED: ACETAMINOPHEN 325 MG TABLET. PO PRN (11:15)
[2020-01-22] MEDS ORDERED: 0.9 % SODIUM CHLORIDE 10 ML DISP.SYRIN. IV PRN (11:15)
[2020-01-22] MEDS ORDERED: BISACODYL 5 MG TABLET.DR. PO PRN (11:15)
[2020-01-22] MEDS ORDERED: diphenhydrAMINE HCL 25 MG CAPSULE PO PRN (11:15)
[2020-01-22] MEDS ORDERED: NON FORMULARY ITEM (Zolpidem Tartrate (Ambien) 10 MG) PO PRN (11:15)
[2020-01-22] MEDS ORDERED: MAG HYDROX/ALUMINUM HYD/SIMETH 30 ML ORAL.SUSP PO PRN (11:15)
[2020-01-22] MEDS ORDERED: ZOLPIDEM 5 MG TABLET. PO PRN (11:15)
[2020-01-22] MEDS ORDERED: ONDANSETRON PF 4 MG/2 ML VIAL. IVP PRN (11:15)
[2020-01-22] MEDS ORDERED: diphenhydrAMINE 50 MG/ML VIAL IV PRN (11:15)
[2020-01-22] MEDS ORDERED: MAGNESIUM HYDROXIDE 2,400 MG/30 ML ORAL.SUSP. PO PRN (11:15)
[2020-01-22] MEDS ORDERED: NALOXONE 0.4 MG/ML VIAL. IV PRN ×2 (11:15)
--- NOTE | 2020-01-22 11:15 | PDOC ---
BRIEF OPERATIVE NOTE Date: Jan 22, 2020 Pre-Op Diagnosis lumbar stenosis L3-4, lumbar radiculopathy Post-Op Diagnosis same Procedure Performed bilateral hemilaminotomies L3-4 Surgeon Evelyn Skating Carhop none Anesthesia Type: General Blood Loss 25mL Specimens Obtained decompression Findings prominent stenosis lateral recesses and foramina bilateral L3-4, neuromonitoring improved after completion of procedure Complications none apparent YOVANY ENCARNACION MD Jan 22, 2020 11:15
[2020-01-22] MEDS ORDERED: fentaNYL PF VIAL 100 MCG/2 ML VIAL IVP PRN ×2 (11:30)
[2020-01-22] MEDS: fentaNYL PF VIAL 100 MCG/2 ML VIAL IV PRN ×2 (11:47→12:01)
--- NOTE | 2020-01-22 12:32 | NUR ---
Arrived to unit by bed from PACU. Alert and oriented x's 4. Dressing lower back is d/i. Pt able to move all extremities easily with no numbness, no tingling and no pain. Pedal pulses + bilaterally. MICHAEL's and SCD's on bilaterally. IVF's intact and infusing. Oriented to room and controls. Side rails up x's 2 with call light in reach. Attempting to void in urinal. Cont. monitor.
[2020-01-22] MEDS: METHOCARBAMOL 750 MG TABLET PO SCH ×2 (13:38→20:50)
[2020-01-22] MEDS: GABAPENTIN 300 MG CAPSULE. PO SCH ×2 (13:38→20:50)
[2020-01-22] MEDS: NICOTINE 21MG PATCH. TD SCH (13:39)
[2020-01-22] MEDS: CALCIUM CARB/VIT D3 500/200 TABLET. PO SCH (16:56)
[2020-01-22] MEDS: FERROUS SULFATE 325 MG TABLET. PO SCH (16:56)
[2020-01-22] MEDS: oxyCODONE/APAP 5/325 1 TAB TABLET PO PRN (19:22)
[2020-01-22] MEDS: TRIAMCINOLONE ACETONIDE 0.5% TOPICAL CREAM 15GM TUBE. TP SCH (20:50)
[2020-01-22] MEDS: SENNOSIDES/DOCUSATE 8.6/50MG TABLET. PO SCH (20:50)
[2020-01-22] MEDS: DOCUSATE SODIUM 100 MG CAPSULE. PO SCH (20:50)
[2020-01-23 03:00] VITALS: BP 126/69
[2020-01-23] MEDS: oxyCODONE/APAP 5/325 1 TAB TABLET PO PRN ×4 (04:45→15:23)
[2020-01-23 06:45] VITALS: BP 125/84
--- NOTE | 2020-01-23 08:00 | NUR ---
Jon is doing well this am. denies pain or numbness down the right leg. does have incisional discomfort. dressing to back is clean and dry.
--- NOTE | 2020-01-23 08:39 | PDOC ---
Date of Service: DATE: 01/23/20 TIME: 08:36 Progress Note: S: Reports significant improvement of bilateral lower extremity numbness and pain since surgery, incisional pain controlled with po medication O: AF/VSS, AAOx4, GUSMAN 5/5, sensation intact LT, dressing c/d/i A: POD1 L3-4 bilateral decompression P: Recovering well thus far, d/c home today with standard post-op restrictions, f/u [address] Encarnacion/JUDE [phone] Justifications for Admission Other Justification YOVANY ENCARNACION MD Jan 23, 2020 08:39
[2020-01-23] MEDS ORDERED: CETIRIZINE HCL 10 MG TABLET. PO SCH (09:00)
[2020-01-23] MEDS ORDERED: MULTIVITAMIN with MINERAL TABLET. PO SCH (09:00)
[2020-01-23] MEDS: TRIAMCINOLONE ACETONIDE 0.5% TOPICAL CREAM 15GM TUBE. TP SCH (09:00)
[2020-01-23] MEDS ORDERED: DULoxetine HCL 30 MG CAPSULE.DR PO SCH (09:00)
[2020-01-23] MEDS ORDERED: MELOXICAM 7.5 MG TABLET PO SCH (09:00)
[2020-01-23] MEDS: METHOCARBAMOL 750 MG TABLET PO SCH ×2 (09:15→15:20)
[2020-01-23] MEDS: NICOTINE 21MG PATCH. TD SCH (09:15)
[2020-01-23] MEDS: CALCIUM CARB/VIT D3 500/200 TABLET. PO SCH (09:15)
[2020-01-23] MEDS: DOCUSATE SODIUM 100 MG CAPSULE. PO SCH (09:16)
[2020-01-23] MEDS: SENNOSIDES/DOCUSATE 8.6/50MG TABLET. PO SCH (09:16)
[2020-01-23] MEDS: GABAPENTIN 300 MG CAPSULE. PO SCH ×2 (09:16→15:21)
[2020-01-23] MEDS: FERROUS SULFATE 325 MG TABLET. PO SCH (09:16)
[2020-01-23 10:44] VITALS: BP 141/82
[2020-01-23] MEDS ORDERED: METH-38 PO (11:04)
[2020-01-23] MEDS ORDERED: SENN1TAB99 PO (11:06)
[2020-01-23] MEDS ORDERED: OXYC1TAB15 PO (11:07)
--- NOTE | 2020-01-23 12:59 | NUR ---
reviewed discharge instructions with Jon. reviewed restrictions to activities of daily living such as bathing, driving and lifting restrictions. verbalized understanding of needing to call for a follow up with Dr. Rivas. scripts for pain med, senna and Robaxin given. daughter will pick him up at 6pm.
[2020-01-23 15:23] VITALS: BP 130/88
--- NOTE | 2020-01-23 16:00 | NUR ---
granddaughter is picking him up. no new complaints. dismissed to home
--- NOTE | 2020-01-25 14:12 | PATHOLOGY ---
[facility] Accession Number: [id number] . 01 Material submitted: . vertebral column - LUMBAR DECOMPRESSION . 01 Clinical history: . LUMBAR STENOSIS . 02 Diagnosis: Segments of fibrocartilaginous, adipose, and skeletal muscle tissue and bone, lumbar decompression: - Degenerative changes of fibrocartilaginous tissue. (JPM:[facility] 01/25/2020) [facility] 01/25/2020 1051 Local . 02 Comment: There is no evidence of an acute inflammatory process or malignancy. (JPM:[facility] 01/25/2020) . 02 Electronically signed: . Tomer Alvarez MD, Pathologist NPI- [id number] . 01 Gross description: . The specimen is received in formalin, labeled "Ramirez, Jon, lumbar decompression" and consists of multiple segments of pink-rowan rubbery and gritty soft tissue and bone, measuring 4.5 x 3.0 x 0.6 cm in aggregate. A life assurance representative portion is submitted in A1 following decalcification. (SDY; 01/23/2020) SYU/SYU 01/25/2020 1050 Local . 02 Pathologist provided ICD-10: M51.36 . 02 CPT . 592505, [id number] Specimen Comment: A courtesy copy of this report has been sent to [phone], [phone] Specimen Comment: [id number] Specimen Comment: Report sent to / DR SWANSON Performed at: 01 [facility] [address], [place] [id number] MD Will Sidhu MD Phone: [phone] Performed at: 02 [facility] [address], [place] [id number] MD Tomer Alvarez MD Phone: [phone]
--- NOTE | 2020-01-30 10:56 | OP ---
DATE OF SURGERY: 01/22/2020 SURGEON: Shekhar Encarnacion MD JIGGER MACHINE OPERATOR: None. ANESTHESIA: General. PREOPERATIVE DIAGNOSIS: Lumbar stenosis lumbar 3-4 with lumbar radiculopathy. POSTOPERATIVE DIAGNOSIS: Lumbar stenosis lumbar 3-4 with lumbar radiculopathy. PROCEDURE: Bilateral hemilaminotomy at lumbar 3-4 with intraoperative use of microscope and intraoperative use of neuro monitoring. COMPLICATIONS: None. INDICATIONS FOR THE PROCEDURE: The patient is a 59-year-old gentleman with bilateral lower extremity pain and numbness localized to stenosis, degenerative stenosis at lumbar 3-4. He has been refractory to nonsurgical treatment. Please refer to the patient's chart for additional details. DESCRIPTION OF PROCEDURE: After informed consent was obtained, the patient was brought to the operating room. He was placed under general anesthesia. He was placed in the prone position on the Jesus table. All pressure points were checked and padded appropriately. Ancef was administered as a prophylactic antibiotic and the lumbar region was prepped and draped in the usual sterile fashion. Fluoroscopy was utilized to localize an appropriate incision location centered over the region of lumbar 3-4. Vertical incision over this region was made with a 10 blade scalpel. Monopolar electrocautery was utilized to dissect the avascular midline to the spinous processes of lumbar 3 and lumbar 4 and bilaterally across the lamina at this location. Self-retainers were first instituted on the right and a hemilaminotomy was performed on the right at lumbar 3-4 utilizing a pneumatic drill as well as Kerrison rongeur. The underlying ligament was gently removed with a Kerrison rongeur protecting the underlying adjacent neural elements. Once decompression on this side was complete, it was verified with direct visualization as well as gentle palpation with a Fentress. Neuro monitoring was also noted to be improved upon completion of the decompression on the right. Once this was complete, attention was turned to the left side. Midline structures were preserved. A left hemilaminotomy was performed with a pneumatic drill as well as a Kerrison rongeur. Again, the ligament was gently dissected free from the thecal sac and removed with a Kerrison rongeur. The underlying neural elements were noted to be very well decompressed upon completion of these procedures and this was again verified with direct visualization as well as gentle palpation with a Fentress and verification of improvement of neuro monitoring. Once decompression was complete bilaterally, pristine hemostasis was achieved with FloSeal, cottonoids and some use of bipolar electrocautery. The wound was generously irrigated with antibiotic irrigation prior to final closure. Muscles and fascia were then reapproximated with 0 Vicryl in a simple interrupted fashion. Subcutaneous tissues were reapproximated with 2-0 Vicryl in interrupted inverted fashion. The skin was reapproximated with 4-0 Vicryl in a running subcuticular fashion. Mastisol and Steri-Strips were applied. Wound was dressed with Telfa, 4 x 4s and Tegaderm. All counts were complete. There were no intraprocedural complications apparent. Neuro monitoring was improved upon completion of the procedure. The patient was extubated in the operating room and taken to recovery in stable condition. SHEKHAR ENCARNACION MD DR: REFUGIO/edwin JOB#: [id number] / [id number]
--- NOTE | 2020-01-30 16:21 | HP ---
ADMIT DATE: 01/22/2020 CHIEF COMPLAINT: Back pain, bilateral lower extremity pain. HISTORY OF PRESENT ILLNESS: The patient is a 59-year-old gentleman who presented to clinic with low back pain, a lot of this pain radiates to the bilateral lower extremities. He denies clear inciting event. The pain has been present chronically. He reports aching, stabbing low back pain that radiates to the bilateral anterolateral thighs. There is tingling in both feet. The pain is worse with activity. There is some relief with rest. He denies discrete focal weakness or bowel or bladder changes. He has had an injection therapy with short transient benefit, but the pain quickly returned. REVIEW OF SYSTEMS: CONSTITUTIONAL: No weight changes, generally healthy. No changes of strength or exercise tolerance. Had no headaches, no vertigo, no injury. EYES: Normal vision. No diplopia, tearing or scotoma. No pain. EARS: No change in hearing, no tinnitus, no bleeding, no vertigo. NOSE: No epistaxis crease of obstruction or discharge. NECK: No stiffness, pain, tenderness or noted masses. CHEST: No wheezing, hemoptysis or cough. HEART: No chest pains, palpitations, syncope or orthopnea. ABDOMEN: No changes in appetite, dysphagia, abdominal pain. No bowel habit changes. No emesis. No melena. GENITOURINARY: No urinary urgency, dysuria, or change in nature of urine. NEUROLOGIC: No discrete focal weakness, no tremor, no seizures. No changes in mentation and no ataxia. OBJECTIVE: VITAL SIGNS: He is 74 inches tall, weighs 152 pounds. BMI is 19.52. He rates his pain 9/10. Temperature is 98.5 degrees Fahrenheit, pulse is 62, respirations 18, O2 sat is 98% on room air, blood pressure is 152/83. GENERAL: On physical examination, he is awake, alert and oriented x 4. He is in no acute distress. He is cooperative with exam. HEAD: His head is normocephalic and atraumatic. NECK: Supple, nontender. CARDIOVASCULAR: Pulses are regular. LUNGS: Respirations are even and nonlabored. SKIN: Turgor is normal. EXTREMITIES: Pulses are equal. There is no cyanosis, clubbing or edema. NEUROLOGIC: He moves all extremities with good range of motion. His mentation and speech are normal. He comprehends and follows commands without difficulty. Cranial nerves 2-12 are intact bilaterally. Strength is 5/5 throughout all major muscle groups in the bilateral upper and bilateral lower extremities. Deep tendon reflexes are symmetric and 3/4 throughout. Sensation is intact to light touch. Cerebellar function is normal in the upper and lower extremities bilaterally. His ambulation is with normal stance and stride. LABORATORY DATA: He has an MRI from 12/04/2019 showing diffuse spondylosis with prominent increased bilateral lateral recess stenosis at L3-L4 due to degenerative changes and disk bulging. There is mass effect on the neural elements at this location. ASSESSMENT: This is a 59-year-old female with lumbar stenosis at lumbar 3-4 with lumbar radiculopathy, who has been refractory to nonsurgical treatment. PLAN: Imaging findings and therapeutic options were discussed. He has been refractory to nonsurgical treatments. Bilateral hemilaminotomy for decompression at L3-L4 was discussed with the patient including explanation of potential risks, benefits, and expectations. After careful consideration of these things, he elects to proceed. All questions answered, all in agreement. PAST MEDICAL HISTORY: He has a history of disk rupture at L4-L5. He had an appendectomy in 1981. He has osteoarthritis, seasonal allergies, chronic low back pain, migraines, history of insomnia, and COPD, wears seatbelt. He also has a history of depression. SOCIAL HISTORY: He is a former sniper in the , is . He has 2 children and is disabled presently. He utilizes tobacco moderately for approximately 40 years. FAMILY HISTORY: Includes a myocardial infarction for his father, diabetes mellitus type 2 for his mother. MEDICATIONS: Include Dulcolax, cetirizine, duloxetine, Mobic, gabapentin, meloxicam, sumatriptan, tizanidine, triamcinolone and zolpidem. YOVANY ENCARNACION MD DR: REFUGIO/edwin JOB#: [id number] / [id number]
[2020-02-21] MEDS ORDERED: ERENUMAB AOOE 70 MG SQ SCH (09:00)
== END 2020-01-23 16:00 | disposition home or self-care (01) ==
LOC: SURG 06:35 → 4 SOUTHEST 11:12
PROVIDERS: ADMIT Neurological Surgery; ATTEND Neurological Surgery
DX: M48.061 Spinal stenosis, lumbar region without neurogenic claudication (principal); M54.16 Radiculopathy, lumbar region
CPT/HCPCS: 63030; 76000; 97161; 97165; 97535; 99406; G0378; G0379; J0690; J1100; J2250; J2405; J2704; J2710; J3010; J3490; J7030